=== PATIENT | male | born 1990 | race Caucasian/White ===

== ENCOUNTER 2021-09-04 13:58 | Emergency (ER) | payer SELFPAY ==
[~2021-09-04] VITALS: Ht 172.7 cm; Wt 82.5 kg
[2021-09-04 15:43] LABS: BASO % 0.6 % (0.0-1.0); EOS % 0.5 % (0.0-3.0); HEMATOCRIT 42.7 % (42.0-52.0); HEMOGLOBIN 14.6 g/dl (13.5-17.5); LYMPH # 1.2 10^3/uL (1.5-5.0); LYMPH % 17.5 % (24.0-44.0); MEAN CORPUSCULAR HEMOGLOBIN 30.7 pg (27.0-33.0); MEAN CORPUSCULAR HGB CONC 34.2 g/dl (32.0-36.5); MEAN CORPUSCULAR VOLUME 89.9 fl (80.0-96.0); MONO % 15.9 % (2.0-8.0); NEUTROPHILS # 4.3 10^3/uL (1.5-8.5); NEUTROPHILS % 64.7 % (36.0-66.0); PLATELET COUNT, AUTOMATED 128 10^3/uL (150-450); RED BLOOD COUNT 4.75 10^6/uL (4.30-6.10); WHITE BLOOD COUNT 6.6 10^3/uL (4.0-10.0)
[2021-09-04 16:01] LABS: ERYTHROCYTE SEDIMENTATION RATE 2 mm/hr (0-15)
[2021-09-04 16:15] LABS: ALBUMIN 3.9 GM/DL (3.2-5.2); ALT/SGPT 40 U/L (12-78); BILIRUBIN,TOTAL 0.3 MG/DL (0.2-1.0); BLOOD UREA NITROGEN 12 MG/DL (7-18); C REACTIVE PROTEIN QUANTITATIV 3.45 MG/DL (0.00-0.30); CALCIUM LEVEL 8.5 MG/DL (8.5-10.1); CARBON DIOXIDE LEVEL 26 MEQ/L (21-32); CHLORIDE LEVEL 104 MEQ/L (98-107); CREATININE FOR GFR 1.06 MG/DL (0.70-1.30); GLOMERULAR FILTRATION RATE > 60.0 (>60); GLUCOSE, FASTING 101 MG/DL (70-100); SODIUM LEVEL 138 MEQ/L (136-145)
[2021-09-04] MEDS ORDERED: NS 1,000 ML IV SCH (17:00)
[2021-09-04] MEDS ORDERED: ACETAMINOPHEN 325 MG/10.15 ML UDC PO ONE (17:10)
[2021-09-04] MEDS ORDERED: ISOVUE-370 76% 100ML VIAL As Ordered ONE (18:15)
[2021-09-04 20:39] VITALS: BP 110/64
== END 2021-09-04 21:08 | disposition home or self-care (01) ==
LOC: M ED 13:58
DX: U07.1 COVID-19 (principal)
CPT/HCPCS: 71275; 80053; 85025; 85379; 85652; 86140; 87428; 87486; 87581; 87633; 87798; 87880; 96360; 96361; 99284; Q9967